=== PATIENT | male | born 1960 | race Caucasian/White ===

== ENCOUNTER 2025-02-15 13:17 | Outpatient (CLI) | payer BC, SELFPAY ==
--- NOTE | 2025-02-15 13:45 | MR_ITS ---
[facility] [address] [facility] [address] Phone:?[phone] Fax:?[phone] Referring Physician Information: Jose Rodriguez [address] [facility] [address] Phone:?[phone] Fax:?[phone] Patient:Mercy May D.O.B:?1960 Sex:?Male Phone:?[phone] [facility] MRN:?[id number] Exam Date:?02/15/2025 EXAM: MRI of the LEFT SHOULDER without contrast CLINICAL: Left shoulder pain. Evaluate biceps and supraspinatus. COMPARISONS: X-rays dated 02/04/2025. TECHNICAL: Multiplanar multisequence MRI of the left shoulder was obtained. SEDATION: None. CONTRAST: None. FINDINGS: Rotator cuff: Supraspinatus/Infraspinatus: Mild tendinosis of the distal supraspinatus and infraspinatus tendons without evidence of significant tendon tear. There is no significant fatty atrophy of the muscles. Teres minor: No tendinosis, tear or atrophy. Subscapularis: Mild tendinosis of the distal tendon without evidence of significant tendon tear. No significant fatty atrophy of the muscle. Bursae: Subacromial-subdeltoid: No significant bursal fluid. Subcoracoid: No significant bursal fluid. Coracoacromial arch: Acromion morphology: Type II. No os acromiale. Acromiohumeral space: Within normal limits. Coracohumeral space: Within normal limits. Biceps tendon, long head: Mild tendinosis/partial tearing of the intra-articular tendon as seen on sagittal series 9 images 11-13. No evidence of significant tendon tear or displacement. Glenohumeral joint: No significant joint effusion. Articular cartilage: No significant chondral loss. Capsule: No evidence of capsular thickening or injury. Labrum: There is marked attenuation of the superior and posterior superior labrum. Remainder of the labrum appears intact. No perilabral cyst identified. Bones: No suspicious marrow signal alteration, fracture or dislocation. Acromioclavicular joint: Mild changes of arthrosis. No AC joint injury/widening. IMPRESSION: 1. Mild tendinosis of the distal supraspinatus, infraspinatus and subscapularis tendons without evidence of significant rotator cuff tendon tear. 2. Mild tendinosis/partial tearing of the intra-articular long head biceps tendon. 3. Marked attenuation of the superior and posterior superior labrum. 4. Mild AC joint arthrosis. JCZ Electronically signed on 02/16/2025 8:43:00 AM by Pradeep Saavedra D.O.
== END 2025-02-15 13:18 | disposition home or self-care (01) ==
LOC: MRI 13:18
PROVIDERS: PCP Family Medicine; Visit Provider Physician Assistant
DX: M25.512 Pain in left shoulder (principal); S46.212A Strain of muscle, fascia and tendon of other parts of biceps, left arm, initial encounter; M19.012 Primary osteoarthritis, left shoulder
CPT/HCPCS: 73221